=== PATIENT | male | born 2000 | race Caucasian/White ===

== ENCOUNTER 2022-07-21 11:45 | Emergency (ER) | payer BC ==
[~2022-07-21] VITALS: Ht 188 cm; Wt 70.8 kg
[2022-07-21 11:46] VITALS: BP 98/45
== END 2022-07-21 14:21 | disposition home or self-care (01) ==
LOC: EDH 11:45
DX: S62.316A Displaced fracture of base of fifth metacarpal bone, right hand, initial encounter for closed fracture (principal); X58.XXXA Exposure to other specified factors, initial encounter; Y93.89 Activity, other specified; Y92.89 Other specified places as the place of occurrence of the external cause; Y99.8 Other external cause status
CPT/HCPCS: 73130